=== PATIENT | male | born 1975 ===

== ENCOUNTER 2017-11-30 19:32 | Observation (INO) | payer OTHER ==
[2017-11-30] MEDS ORDERED: Sodium Chloride 0.9% 1,000 ML IV STA (20:21)
--- NOTE | 2017-11-30 20:24 | ED PDOC ---
Syncope/Near Syncope/Dizziness Time Seen by Provider: 11/30/17 20:08 Chief Complaint (Nursing): Syncope Chief Complaint (Provider): syncope History Per: Patient, Family History/Exam Limitations: no limitations Onset/Duration Of Symptoms: Intermittent Episodes Number Of Syncopal Episodes: >3 Activity At Onset Of Symptoms: Sitting, Had Just Stood up Associated Symptoms Preceding Syncopal Episode: Lightheadedness Additional Complaint(s): 41 y/o male brought in by EMS for evaluation of multiple syncopal episodes prior to arrival. Patient admits to smoking marijuana tonight; states approximately 30 mins after he was showering and felt two "sharp" pains on left side of chest and then woke up on shower floor. Patient's states she heard patient fall and found him ground, states when she sat him up he fainted again, and then 3 more times after that while trying to get him on to the bed. Patient admits to feeling lightheaded and "weak" before fainting episodes. Patient unsure of head injury, but notes mild posterior headache, worse with positional change. Denies fever, neck/back pain, vision changes, nausea/ vomiting, chest pain at present, shortness of breath, palpitations, abdominal pain, recent travel. Past Medical History Reviewed: Historical Data, Nursing Documentation, Vital Signs Vital Signs: Last Vital Signs Temp 99.1 F 11/30/17 19:36 Pulse 89 11/30/17 19:36 Resp 20 11/30/17 19:36 BP 150/84 11/30/17 19:36 Pulse Ox 96 11/30/17 19:36 - Medical History PMH: HTN - Surgical History Surgical History: No Surg Hx - Family History Family History: States: No Known Family Hx - Living Arrangements Living Arrangements: With Family - Social History Current smoker - smoking cessation education provided: No Alcohol: Occasional Drugs: Cannabis - Allergies Allergies/Adverse Reactions: Allergies Allergy/AdvReac Type Severity Reaction Status Date / Time No Known Allergies Allergy Verified 11/30/17 19:36 Review of Systems ROS Statement: Except As Marked, All Systems Reviewed And Found Negative Neurological: Positive for: Headache Physical Exam - Reviewed Nursing Documentation Reviewed: Yes Vital Signs Reviewed: Yes - Physical Exam Appears: Positive for: Well, Non-toxic, No Acute Distress Head Exam: Positive for: ATRAUMATIC, NORMAL INSPECTION, NORMOCEPHALIC Skin: Positive for: Normal Color Eye Exam: Positive for: Normal appearance, EOMI, PERRL ENT: Positive for: Normal ENT Inspection Cardiovascular/Chest: Positive for: Regular Rate, Rhythm Respiratory: Positive for: Normal Breath Sounds Gastrointestinal/Abdominal: Positive for: Normal Exam Back: Positive for: Normal Inspection Extremity: Positive for: Normal ROM Neurologic/Psych: Positive for: Alert, Oriented (x3). Negative for: Motor/ Sensory Deficits - Laboratory Results Result Diagrams: 11/30/17 20:43 11/30/17 20:43 - ECG ECG: Positive for: Viewed By Me (reviewed by ED attending) ECG Rhythm: Positive for: Sinus Rhythm O2 Sat by Pulse Oximetry: 96 - Radiology X-Ray: Viewed By Me X-Ray Interpretation: No Acute Disease - Progress ED Course And Treament: Impression: syncope, chest pain, substance abuse plan: cbc cmp trop urinalysis urine drug screen ekg cxr ct head IV NS bolus EXAM: CT Head Without Intravenous Contrast CLINICAL HISTORY: The patient is a 41 years male; Signs and symptoms; Syncope and collapse; Patient HX: HX of concussions; Additional info: Syncope, headache 11/30/2017 8:21 PM TECHNIQUE: Axial computed tomography images of the head/brain without intravenous contrast. All CT scans at this facility use at least one of these dose optimization techniques: automated exposure control; mA and/or kV adjustment per patient size (includes targeted exams where dose is matched to clinical indication); or iterative reconstruction. COMPARISON: No relevant prior studies available. FINDINGS: Brain: Hyperdense foci in bilateral basal ganglia, suspicious calcifications. Areas of decreased attenuation noted within the periventricular and subcortical white matter likely related to chronic microangiopathic ischemic changes given the patient's stated age. No hemorrhage. Ventricles: Unremarkable. No ventriculomegaly. Bones/joints: Unremarkable. No acute fracture. Soft tissues: Unremarkable. Sinuses: Unremarkable as visualized. No acute sinusitis. Mastoid air cells: Unremarkable as visualized. No mastoid effusion. IMPRESSION: Hyperdense foci in bilateral basal ganglia, suspicious calcifications. No evidence of acute intracranial hemorrhage. Case discussed with ED attending Dr. Meade, will place in observation telemetry for chest pain, syncope Case discussed with Bill Zaidi FACETER for admission Disposition - Clinical Impression Clinical Impression: Chest pain, Syncope, Polysubstance abuse - Patient ED Disposition Is Patient to be Admitted: Yes - Disposition Disposition Time: 23:30 Condition: FAIR - Pt Status Changed To: Hospital Disposition Of: Observation
[2017-11-30 20:52] LABS: BASO # 0.1 K/uL (0.0-0.2); BASO % 0.7 % (0.0-2.0); EOS # 0.1 K/uL (0.0-0.7); EOS % 0.9 % (0.0-4.0); HEMOGLOBIN 13.8 g/dL (12.0-18.0); LYMPH # 1.3 K/uL (1.0-4.3); LYMPH % 13.7 % (20.0-40.0); MEAN CELL VOLUME 85.6 fl (80.0-94.0); MEAN CORPUSCULAR HEMOGLOBIN 29.5 pg (27.0-31.0); MEAN CORPUSCULAR HGB CONC 34.5 g/dL (33.0-37.0); MEAN PLATELET VOLUME 8.3 fl (7.2-11.7); MONO # 0.5 K/uL (0.0-0.8); MONO % 5.6 % (0.0-10.0); NEUT # 7.4 K/uL (1.8-7.0); NEUT % 79.1 % (50.0-75.0); NRBC % 0.1 % (0.0-0.0); RBC 4.69 Mil/uL (4.40-5.90); RED CELL DISTRIBUTION WIDTH 13.5 % (11.5-14.5); WHITE BLOOD COUNT 9.4 K/uL (4.8-10.8)
[2017-11-30 20:57] LABS: ALB/GLOB RATIO 1.2 (1.0-2.1); ALBUMIN 4.3 g/dL (3.5-5.0); ALT/SGPT 26 U/L (21-72); AST/SGOT 20 U/L (17-59); BLOOD UREA NITROGEN 19 mg/dl (9-20); CALCIUM 9.2 mg/dL (8.4-10.2); GFR AFRICAN-AMERICAN > 60; GFR NON-AFRICAN AMERICAN > 60
[2017-11-30 23:26] LABS: BARBITURATES, UR NEGATIVE (NEGATIVE); BENZODIAZEPINES, UR NEGATIVE (NEGATIVE); OPIATES, UR NEGATIVE (NEGATIVE); PHENCYCLIDINE, UR NEGATIVE (NEGATIVE)
[2017-11-30] MEDS: Sodium Chloride 0.9% 1,000 ML IV SCH (23:29)
[2017-11-30 23:45] LABS: URINE BILIRUBIN NEGATIVE (NEGATIVE); URINE BLOOD NEGATIVE (NEGATIVE); URINE CLARITY SLIGHTY-CLOUDY (Clear); URINE COLOR YELLOW (YELLOW); URINE GLUCOSE (UA) NEG (Normal); URINE LEUKOCYTE ESTERASE NEG Leu/uL (Negative); URINE PROTEIN NEGATIVE (NEGATIVE); URINE UROBILINOGEN 0.2-1.0 mg/dL (0.2-1.0)
[2017-12-01 06:06] LABS: BASO % 0.5 % (0.0-2.0); EOS # 0.1 K/uL (0.0-0.7); EOS % 1.3 % (0.0-4.0); HEMOGLOBIN 12.8 g/dL (12.0-18.0); LYMPH # 1.8 K/uL (1.0-4.3); LYMPH % 21.6 % (20.0-40.0); MEAN CORPUSCULAR HEMOGLOBIN 29.2 pg (27.0-31.0); MEAN CORPUSCULAR HGB CONC 33.9 g/dL (33.0-37.0); MEAN PLATELET VOLUME 8.4 fl (7.2-11.7); MONO # 0.5 K/uL (0.0-0.8); MONO % 5.7 % (0.0-10.0); NEUT # 5.8 K/uL (1.8-7.0); NEUT % 70.9 % (50.0-75.0); RBC 4.39 Mil/uL (4.40-5.90); RED CELL DISTRIBUTION WIDTH 13.4 % (11.5-14.5); WHITE BLOOD COUNT 8.1 K/uL (4.8-10.8)
[2017-12-01 06:26] LABS: ALB/GLOB RATIO 1.2 (1.0-2.1); ALBUMIN 3.7 g/dL (3.5-5.0); ALT/SGPT 30 U/L (21-72); AST/SGOT 15 U/L (17-59); BLOOD UREA NITROGEN 16 mg/dl (9-20); CALCIUM 8.7 mg/dL (8.4-10.2); GFR AFRICAN-AMERICAN > 60; GFR NON-AFRICAN AMERICAN > 60
--- NOTE | 2017-12-01 07:35 | CT ---
Date of service: 11/30/2017 PROCEDURE: CT HEAD WITHOUT CONTRAST. HISTORY: Headache, syncope. COMPARISON: None available. TECHNIQUE: Axial computed tomography images were obtained through the head/brain without intravenous contrast. Radiation dose: Total exam DLP = 864.16 mGy-cm. This CT exam was performed using one or more of the following dose reduction techniques: Automated exposure control, adjustment of the mA and/or kV according to patient size, and/or use of iterative reconstruction technique. FINDINGS: HEMORRHAGE: No intracranial hemorrhage. BRAIN: No mass effect or edema. No atrophy or chronic microvascular ischemic changes. VENTRICLES: Unremarkable. No hydrocephalus. CALVARIUM: Unremarkable. PARANASAL SINUSES: Unremarkable as visualized. No significant inflammatory changes. MASTOID AIR CELLS: Unremarkable as visualized. No inflammatory changes. OTHER FINDINGS: None. IMPRESSION: No acute intracranial abnormalities. No significant findings to account for the clinical presentation. Concordant results (preliminary interpretation) provided by [facility]. Procedure Completed: 20:58 Preliminary ([facility]) Report: Dictated and Authenticated: 21:29 Final Interpretation: 07:33
[2017-12-01] MEDS: Sodium Chloride 0.9% 1,000 ML IV SCH (08:39)
--- NOTE | 2017-12-01 09:00 | CP.PCM.HP ---
History of Present Illness - History of Present Illness History of Present Illness: pt admitted after having cp, palpitations and syncope. states showered after smoking marijuana and woke up in hospital at present denies complaints. no f/c, n/v/d. no cp, palpitations. utox w/ marijuana and cocaine. pt denies cocaine use. 1st trop negative. pending am trop, echo, cardio consult Present on Admission - Present on Admission Any Indicators Present on Admission: No Review of Systems - Cardiovascular Cardiovascular: As Per HPI, Chest Pain, Palpitations - Neurological Neurological: As Per HPI, Syncope Past Patient History - Past Medical History & Family History Past Medical History?: Yes - Past Social History Smoking Status: Never Smoked - CARDIAC Hx Cardiac Disorders: Yes Hx Hypertension: Yes - PULMONARY Hx Respiratory Disorders: No - NEUROLOGICAL Hx Neurological Disorder: No - HEENT Hx HEENT Problems: No - RENAL Hx Chronic Kidney Disease: No - ENDOCRINE/METABOLIC Hx Endocrine Disorders: No - HEMATOLOGICAL/ONCOLOGICAL Hx Blood Disorders: No - INTEGUMENTARY Hx Dermatological Problems: No - MUSCULOSKELETAL/RHEUMATOLOGICAL Hx Musculoskeletal Disorders: No Hx Falls: Yes (DUE TO SYNCOPAL EPISODE) - GASTROINTESTINAL Hx Gastrointestinal Disorders: No - GENITOURINARY/GYNECOLOGICAL Hx Genitourinary Disorders: No - PSYCHIATRIC Hx Psychophysiologic Disorder: Yes Hx Substance Use: Yes (COCAINE,MARIJUANA) - SURGICAL HISTORY Hx Surgeries: Yes Other/Comment: surgery for testicular torsion - ANESTHESIA Hx Anesthesia: Yes Hx Anesthesia Reactions: No Hx Malignant Hyperthermia: No Meds Allergies/Adverse Reactions: Allergies Allergy/AdvReac Type Severity Reaction Status Date / Time No Known Allergies Allergy Verified 11/30/17 19:36 Physical Exam - Constitutional Appears: Well, Non-toxic, No Acute Distress - Head Exam Head Exam: ATRAUMATIC, NORMAL INSPECTION, NORMOCEPHALIC - Eye Exam Eye Exam: EOMI, Normal appearance, PERRL Pupil Exam: NORMAL ACCOMODATION, PERRL - ENT Exam ENT Exam: Mucous Membranes Moist, Normal Exam - Neck Exam Neck exam: Positive for: Normal Inspection - Respiratory Exam Respiratory Exam: Clear to Auscultation Bilateral, NORMAL BREATHING PATTERN - Cardiovascular Exam Cardiovascular Exam: REGULAR RHYTHM, RRR, +S1, +S2 - GI/Abdominal Exam GI & Abdominal Exam: Normal Bowel Sounds, Soft. absent: Tenderness - Extremities Exam Extremities exam: Positive for: full ROM, normal capillary refill, normal inspection, pedal pulses present - Back Exam Back exam: FULL ROM, NORMAL INSPECTION - Neurological Exam Neurological exam: Alert, CN II-XII Intact, Normal Gait, Oriented x3, Reflexes Normal - Psychiatric Exam Psychiatric exam: Normal Affect, Normal Mood - Skin Skin Exam: Dry, Intact, Normal Color, Warm Results - Vital Signs Recent Vital Signs: Last Vital Signs Temp 98.3 F 12/01/17 08:00 Pulse 76 12/01/17 08:00 Resp 18 12/01/17 08:00 BP 146/90 12/01/17 08:00 Pulse Ox 98 12/01/17 08:00 - Labs Result Diagrams: 12/01/17 04:20 12/01/17 04:20 Labs: Laboratory Results - last 24 hr 11/30/17 11/30/17 11/30/17 20:43 20:43 22:30 WBC 9.4 RBC 4.69 Hgb 13.8 Hct 40.1 MCV 85.6 MCH 29.5 MCHC 34.5 RDW 13.5 Plt Count 199 MPV 8.3 Neut % (Auto) 79.1 H Lymph % (Auto) 13.7 L [place] % (Auto) 5.6 Eos % (Auto) 0.9 Baso % (Auto) 0.7 Neut # (Auto) 7.4 H Lymph # (Auto) 1.3 Brooke # (Auto) 0.5 Eos # (Auto) 0.1 Baso # (Auto) 0.1 Sodium 143 Potassium 3.5 L Chloride 105 Carbon Dioxide 24 Anion Gap 18 BUN 19 Creatinine 1.1 Est GFR ( Amer) > 60 Est GFR (Non-Af Amer) > 60 Random Glucose 139 H Calcium 9.2 Total Bilirubin 0.5 AST 20 ALT 26 Alkaline Phosphatase 80 Troponin I < 0.0120 Total Protein 7.9 Albumin 4.3 Globulin 3.6 Albumin/Globulin Ratio 1.2 Urine Color Yellow Urine Clarity Slighty-cloudy Urine pH 5.0 Ur Specific [place] 1.021 Urine Protein Negative Urine Glucose (UA) Neg Urine Ketones Negative Urine Blood Negative Urine Nitrate Negative Urine Bilirubin Negative Urine Urobilinogen 0.2-1.0 Ur Leukocyte Esterase Neg Urine RBC (Auto) 3 Urine Microscopic WBC 1 Urine Opiates Screen Urine Methadone Screen Ur Barbiturates Screen Ur Phencyclidine Scrn Ur Amphetamines Screen U Benzodiazepines Scrn U Oth Cocaine Metabols U Cannabinoids Screen 11/30/17 12/01/17 12/01/17 22:39 04:20 04:20 WBC 8.1 RBC 4.39 L Hgb 12.8 Hct 37.8 MCV 86.0 MCH 29.2 MCHC 33.9 RDW 13.4 Plt Count 188 MPV 8.4 Neut % (Auto) 70.9 Lymph % (Auto) 21.6 Brooke % (Auto) 5.7 Eos % (Auto) 1.3 Baso % (Auto) 0.5 Neut # (Auto) 5.8 Lymph # (Auto) 1.8 Brooke # (Auto) 0.5 Eos # (Auto) 0.1 Baso # (Auto) 0.0 Sodium 143 Potassium 3.7 Chloride 108 H Carbon Dioxide 24 Anion Gap 15 BUN 16 Creatinine 1.0 Est GFR ( Amer) > 60 Est GFR (Non-Af Amer) > 60 Random Glucose 101 Calcium 8.7 Total Bilirubin 0.6 AST 15 L D ALT 30 Alkaline Phosphatase 73 Troponin I Total Protein 6.8 Albumin 3.7 Globulin 3.0 Albumin/Globulin Ratio 1.2 Urine Color Urine Clarity Urine pH Ur Specific [place] Urine Protein Urine Glucose (UA) Urine Ketones Urine Blood Urine Nitrate Urine Bilirubin Urine Urobilinogen Ur Leukocyte Esterase Urine RBC (Auto) Urine Microscopic WBC Urine Opiates Screen Negative Urine Methadone Screen Negative Ur Barbiturates Screen Negative Ur Phencyclidine Scrn Negative Ur Amphetamines Screen Negative U Benzodiazepines Scrn Negative U Oth Cocaine Metabols Positive H U Cannabinoids Screen Positive H Assessment & Plan (1) DVT prophylaxis Assessment and Plan: scd and ae hose ambulation Status: Acute (2) Chest pain Assessment and Plan: trops, echo, cardio likely substance related asa bp control w/ hctz Status: Acute (3) Polysubstance abuse Assessment and Plan: monitor for withdrawal, outpt substance abuse counselling Status: Acute (4) Syncope Assessment and Plan: echo, trops likely substance abuse related cardio Status: Acute Decision To Admit - Pt Status Changed To: Hospital Disposition Of: Observation - . Bed Request Type: Telemetry Admitting Physician: Juan Luis Sheffield
--- NOTE | 2017-12-01 10:43 | RAD ---
Date of service: 11/30/2017 HISTORY: syncope COMPARISON: No prior. FINDINGS: LUNGS: No active pulmonary disease. PLEURA: No significant pleural effusion identified, no pneumothorax apparent. CARDIOVASCULAR: No radiographic findings to suggest acute or significant cardiovascular disease. OSSEOUS STRUCTURES: No significant abnormalities. VISUALIZED UPPER ABDOMEN: Normal. OTHER FINDINGS: None. IMPRESSION: No active disease.
[2017-12-01 12:44] VITALS: O2SAT 99
--- NOTE | 2017-12-01 14:34 | CARD ---
APPROVED REPORT Date of service: 12/01/2017 EXAM: Two-dimensional and M-mode echocardiogram with Doppler and color Doppler. Other Information Quality : GoodRhythm : NSR INDICATION Chest Pain Syncope 2D DIMENSIONS IVSd1.39 (0.7-1.1cm)LVDd4.59 (3.9-5.9cm) LVOT Diameter2.20 (1.8-2.4cm)PWd1.08 (0.7-1.1cm) IVSs1.45 (0.8-1.2cm)LVDs2.96 (2.5-4.0cm) FS (%) 35.4 %PWs1.64 (0.8-1.2cm) M-Mode DIMENSIONS Left Atrium (MM)3.92 (2.5-4.0cm)IVSd1.41 (0.7-1.1cm) Aortic Root3.50 (2.2-3.7cm)LVDd5.16 (4.0-5.6cm) Aortic Cusp Exc.2.21 (1.5-2.0cm)PWd1.35 (0.7-1.1cm) IVSs2.07 cmFS (%) 39 % LVDs3.17 (2.0-3.8cm)PWs1.43 cm Aortic Valve AoV Peak Olrfyalz495.0cm/sAoV VTI26.0cmAO Peak GR.7mmHg LVOT Peak Ouosimkc677.6cm/sLVOT VTI23.75cmAO Mean GR.4mmHg LANEY (VMAX)1.43yl3QWP (VTI)1.62cm2 Mitral Valve MV E Htzggjdy77.3cm/sMV DECEL [id number] A Jufjiyeb53.1cm/s MV UQS89mzZ/A ratio1.7MVA (PHT)4.63cm2 TDI Lateral E' Peak V16.05cm/sMedial E' Peak V11.90cm/sE/Lateral E'5.2 E/Medial E'7.0 Pulmonary Valve PV Peak Rfkzpdqj407.4cm/s LEFT VENTRICLE The left ventricle is normal size. There is mild to moderate concentric left ventricular hypertrophy. The left ventricular function is normal. The left ventricular ejection fraction is within the normal range.LVEF 65% There is normal LV segmental wall motion. The left ventricular diastolic function is normal. No left ventricle thrombus noted on this study. There is no ventricular septal defect visualized. There is no left ventricular aneurysm. There is no mass noted in the left ventricle. RIGHT VENTRICLE The right ventricle is normal size. There is normal right ventricular wall thickness. The right ventricular systolic function is normal. ATRIA The left atrium size is normal. The right atrium size is normal. The interatrial septum is intact with no evidence for an atrial septal defect. AORTIC VALVE The aortic valve is normal in structure. No aortic regurgitation is present. There is no aortic valvular stenosis. There is no aortic valvular vegetation. MITRAL VALVE The mitral valve is normal in structure. There is no evidence of mitral valve prolapse. There is no mitral valve stenosis. There is no mitral valve regurgitation noted. TRICUSPID VALVE The tricuspid valve is normal in structure. There is no tricuspid valve regurgitation noted. There is no tricuspid valve prolapse or vegetation. There is no tricuspid valve stenosis. PULMONIC VALVE The pulmonary valve is normal in structure. There is no pulmonic valvular regurgitation. There is no pulmonic valvular stenosis. GREAT VESSELS The aortic root is normal in size. The IVC is normal in size and collapses >50% with inspiration. PERICARDIAL EFFUSION The pericardium appears normal. There is no pleural effusion. <Conclusion> The left ventricle is normal size. The left ventricular function is normal. The left ventricular ejection fraction is within the normal range.LVEF 65% There is mild to moderate concentric left ventricular hypertrophy.
--- NOTE | 2017-12-01 15:32 | CARD ---
APPROVED REPORT Date of service: 11/30/2017 EKG Measurement Heart [id number] <Conclusion> Normal sinus rhythm Normal ECG
[2017-12-01 15:49] VITALS: BP 145/91; PULSE 79; RESP 17; TEMP 98.5
--- NOTE | 2017-12-02 11:31 | CP.PCM.DIS ---
Provider - Provider Date of Admission: 11/30/17 22:57 Attending physician: Juan Luis Sheffield MD Time Spent in preparation of Discharge (in minutes): 15 Diagnosis - Discharge Diagnosis (1) DVT prophylaxis Status: Acute (2) Chest pain Status: Acute (3) Polysubstance abuse Status: Acute (4) Syncope Status: Acute Hospital Course - Lab Results Lab Results: Most Recent Lab Values WBC 8.1 K/uL (4.8-10.8) 12/01/17 04:20 RBC 4.39 Mil/uL (4.40-5.90) L 12/01/17 04:20 Hgb 12.8 g/dL (12.0-18.0) 12/01/17 04:20 Hct 37.8 % (35.0-51.0) 12/01/17 04:20 MCV 86.0 fl (80.0-94.0) 12/01/17 04:20 MCH 29.2 pg (27.0-31.0) 12/01/17 04:20 MCHC 33.9 g/dL (33.0-37.0) 12/01/17 04:20 RDW 13.4 % (11.5-14.5) 12/01/17 04:20 Plt Count 188 K/uL (130-400) 12/01/17 04:20 MPV 8.4 fl (7.2-11.7) 12/01/17 04:20 Neut % (Auto) 70.9 % (50.0-75.0) 12/01/17 04:20 Lymph % (Auto) 21.6 % (20.0-40.0) 12/01/17 04:20 [place] % (Auto) 5.7 % (0.0-10.0) 12/01/17 04:20 Eos % (Auto) 1.3 % (0.0-4.0) 12/01/17 04:20 Baso % (Auto) 0.5 % (0.0-2.0) 12/01/17 04:20 Neut # (Auto) 5.8 K/uL (1.8-7.0) 12/01/17 04:20 Lymph # (Auto) 1.8 K/uL (1.0-4.3) 12/01/17 04:20 [place] # (Auto) 0.5 K/uL (0.0-0.8) 12/01/17 04:20 Eos # (Auto) 0.1 K/uL (0.0-0.7) 12/01/17 04:20 Baso # (Auto) 0.0 K/uL (0.0-0.2) 12/01/17 04:20 Sodium 143 mmol/l (132-148) 12/01/17 04:20 Potassium 3.7 MMOL/L (3.6-5.0) 12/01/17 04:20 Chloride 108 mmol/L (98-107) H 12/01/17 04:20 Carbon Dioxide 24 mmol/L (22-30) 12/01/17 04:20 Anion Gap 15 (10-20) 12/01/17 04:20 BUN 16 mg/dl (9-20) 12/01/17 04:20 Creatinine 1.0 mg/dl (0.8-1.5) 12/01/17 04:20 Est GFR ( Amer) > 60 12/01/17 04:20 Est GFR (Non-Af Amer) > 60 12/01/17 04:20 Random Glucose 101 mg/dL (75-110) 12/01/17 04:20 Calcium 8.7 mg/dL (8.4-10.2) 12/01/17 04:20 Total Bilirubin 0.6 mg/dl (0.2-1.3) 12/01/17 04:20 AST 15 U/L (17-59) L D 12/01/17 04:20 ALT 30 U/L (21-72) 12/01/17 04:20 Alkaline Phosphatase 73 U/L (38-126) 12/01/17 04:20 Troponin I < 0.0120 ng/mL (0.00-0.120) 12/01/17 12:43 Total Protein 6.8 G/DL (6.3-8.2) 12/01/17 04:20 Albumin 3.7 g/dL (3.5-5.0) 12/01/17 04:20 Globulin 3.0 gm/dL (2.2-3.9) 12/01/17 04:20 Albumin/Globulin Ratio 1.2 (1.0-2.1) 12/01/17 04:20 Urine Color Yellow (YELLOW) 11/30/17 22:30 Urine Clarity Slighty-cloudy (Clear) 11/30/17 22:30 Urine pH 5.0 (5.0-8.0) 11/30/17 22:30 Ur Specific [place] 1.021 (1.003-1.030) 11/30/17 22:30 Urine Protein Negative mg/dL (NEGATIVE) 11/30/17 22:30 Urine Glucose (UA) Neg mg/dL (Normal) 11/30/17 22:30 Urine Ketones Negative mg/dL (NEGATIVE) 11/30/17 22:30 Urine Blood Negative (NEGATIVE) 11/30/17 22:30 Urine Nitrate Negative (NEGATIVE) 11/30/17 22:30 Urine Bilirubin Negative (NEGATIVE) 11/30/17 22:30 Urine Urobilinogen 0.2-1.0 mg/dL (0.2-1.0) 11/30/17 22:30 Ur Leukocyte Esterase Neg Bj/uL (Negative) 11/30/17 22:30 Urine RBC (Auto) 3 /hpf (0-3) 11/30/17 22:30 Urine Microscopic WBC 1 /hpf (0-5) 11/30/17 22:30 Urine Opiates Screen Negative (NEGATIVE) 11/30/17 22:39 Urine Methadone Screen Negative (NEGATIVE) 11/30/17 22:39 Ur Barbiturates Screen Negative (NEGATIVE) 11/30/17 22:39 Ur Phencyclidine Scrn Negative (NEGATIVE) 11/30/17 22:39 Ur Amphetamines Screen Negative (NEGATIVE) 11/30/17 22:39 U Benzodiazepines Scrn Negative (NEGATIVE) 11/30/17 22:39 U Oth Cocaine Metabols Positive (NEGATIVE) H 11/30/17 22:39 U Cannabinoids Screen Positive (NEGATIVE) H 11/30/17 22:39 - Hospital Course Hospital Course: cardio, echo, trops, asa Discharge Exam - Head Exam Head Exam: ATRAUMATIC, NORMAL INSPECTION, NORMOCEPHALIC Discharge Plan - Follow Up Plan Condition: FAIR Disposition: HOME/ ROUTINE Instructions: Chest Pain (DC), Syncope (Fainting) (DC), Polysubstance Abuse (DC ) Additional Instructions: follow up with pmd in am follow with cardiology in 1 week final dx-cp, syncope, substance abuse rte dprn, meds per med rec Referrals: Juan Luis Sheffield MD [Staff Provider] - Afshin Cates MD [Staff Provider] -
== END 2017-12-01 18:05 | disposition home or self-care (01) ==
LOC: H.ER 19:32 → H.EROBSV 22:57 → H.TEL 23:51
PROVIDERS: ADMIT Family Medicine; ATTEND Family Medicine
DX: R07.9 Chest pain, unspecified (principal); R55 Syncope and collapse; F12.10 Cannabis abuse, uncomplicated; F14.10 Cocaine abuse, uncomplicated; I10 Essential (primary) hypertension
CPT/HCPCS: 36415; 70450; 71045; 80053; 80324; 80345; 80346; 80349; 80353; 80358; 80361; 81003; 83992; 84484; 85025; 93005; 93306; 99285; G0378; J7030